=== PATIENT | male | born 1955 | race Caucasian/White ===

== ENCOUNTER 2017-10-30 17:02 | Emergency (ER) | payer OTHER ==
[~2017-10-30 17:02] MED LIST: GLUCTAB PO; GLYB2.5T3 PO; LISI-363 PO
[2017-10-30 17:18] VITALS: BP 157/77; PULSE 66; RESP 18; TEMP 97.7; O2SAT 100
--- NOTE | 2017-10-30 18:06 | RADRPT ---
EXAM DATE/TIME: 10/30/2017 17:38 [place] COMPARISON: No previous studies available for comparison. INDICATIONS : Right hand pain and inflammation. MEDICAL HISTORY : Hypertension. Diabetes mellitus type II. SURGICAL HISTORY : None. ENCOUNTER: Initial ACUITY: 3 days PAIN SCORE: 6/10 LOCATION: Right hand, MCPJ's FINDINGS: There is moderate osteoarthritis in the right hand. No acute fracture or dislocation. No bony destruc tive changes are present. CONCLUSION: Moderate osteoarthritis. Findings most notable at the metacarpophalangeal joints with associated soft tissue swelling. Jean Marie Armendariz MD on October 30, 2017 at 18:01 Board Certified Radiologist. This report was verified electronically.
[2017-10-30 19:22] LABS: BASOPHIL # 0.1 TH/MM3 (0-0.2); BASOPHIL % 1.2 % (0.0-2.0); EOSINOPHIL # 0.1 TH/MM3 (0-0.4); HEMOGLOBIN 14.7 GM/DL (13.0-17.0); LYMPH % 23.9 % (9.0-44.0); LYMPHOCYTE # 2.5 TH/MM3 (1.0-4.8); MEAN CELL VOLUME 91.8 FL (80.0-100.0); MEAN CORPUSCULAR HEMOGLOBIN 32.2 PG (27.0-34.0); MEAN PLATELET VOLUME 8.7 FL (7.0-11.0); MONO % 8.5 % (0.0-8.0); MONOCYTE # 0.9 TH/MM3 (0-0.9); NEUT % 65.4 % (16.0-70.0); PLATELET COUNT 391 TH/MM3 (150-450); RED BLOOD COUNT 4.58 MIL/MM3 (4.50-5.90); RED CELL DISTRIBUTION WIDTH 14.9 % (11.6-17.2); WHITE BLOOD COUNT 10.7 TH/MM3 (4.0-11.0)
[2017-10-30 19:34] LABS: BICARBONATE 26.3 MEQ/L (21.0-32.0); CALCIUM 9.9 MG/DL (8.5-10.1); CREATININE 1.21 MG/DL (0.60-1.30)
--- NOTE | 2017-10-30 20:31 | PD ---
HPI Chief Complaint: Injury Time Seen by Provider: 20:28 Travel History International Travel<30 days: No Contact w/Intl Traveler<30days: No Traveled to known affect area: No History of Present Illness HPI This is a 62-year-old male with history of hypertension and diabetes. He presents for evaluation of redness of the dorsum of the right hand. He first noticed it one week ago. He noticed 2 small bumps and thought that maybe he got bit by a bug although he does not recall any bug bites or puncture wounds. He was seen at the [facility] today and referred here for further evaluation of this issue. He reports pain, aching, and the dorsum of the right hand, worse with palpation. He denies any fevers, chills. He has no other complaints at this time. [facility] Past Medical History Diabetes: Yes Hypertension: Yes Social History Alcohol Use: Yes (occasionally) Tobacco Use: Yes Substance Use: No Allergies-Medications (Allergen,Severity, Reaction): Coded Allergies: No Known Allergies (Unverified , 08/22/15) Reported Meds & Prescriptions Reported Meds & Active Scripts Active Clindamycin (Clindamycin HCl) 300 Mg Cap 300 Mg PO TID 10 Days Reported Trazodone (Trazodone HCl) 100 Mg Tablet 100 Mg PO HS Tramadol (Tramadol HCl) 50 Mg Tab 50 Mg PO Q8H PRN Sildenafil 20 Mg Tab 50 Mg PO Prazosin (Prazosin HCl) 2 Mg Cap 4 Mg PO HS Pravastatin 40 Mg Tab 40 Mg PO HS Nicotine Patch (Nicotine) 21 Mg/24 Hr Patch 21 Mg T-DERMAL DAILY Metoprolol Tartrate 50 Mg Tab 50 Mg PO BID Methocarbamol 500 Mg Tab 500 Mg PO TID Metformin (Metformin HCl) 1,000 Mg Tab 1,000 Mg PO BIDPC Goodsense Muscle Rub Topical (Menthol-Methyl Salicylate Topical) 8-30 % Cream Magnesium Oxide 400 Mg Tab 400 Mg PO BID Lisinopril 40 Mg Tab 40 Mg PO BID Lidocaine Topical (Lidocaine HCl) 5 % Oint 1 Applic TOPICAL BID PRN Hydrochlorothiazide 50 Mg Tab 50 Mg PO DAILY Hydralazine (Hydralazine HCl) 100 Mg Tab 50 Mg PO TID Take with meals Glipizide 5 Mg Tab 7.5 Mg PO DAILY Take 30 minutes before a meal Gabapentin 800 Mg Tab 800 Mg PO TID [fish oil] 2,000 Mg PO DAILY Diclofenac Topical 1% Gel 1 Applic TOPICAL QID Vitamin D3 (Cholecalciferol) 2,000 Unit Cap 2,000 Units PO DAILY Capsaicin Topical (Capsaicin) 0.025% Cream 1 Applic TOPICAL BID Acetaminophen 325 Mg Capsule 650 Mg PO BID PRN Review of Systems General / Constitutional: No: Fever, Chills Musculoskeletal: Positive: Pain Skin: Positive Other (Positive for redness, pain) Physical Exam Narrative GENERAL: Well-developed well-nourished male in no acute distress SKIN: Warm and dry. There is an area of erythema on the dorsum of the right mid hand. There is no significant induration. There is no fluctuance. No open wounds.\ CARDIOVASCULAR: Regular rate and rhythm. No murmur appreciated. RESPIRATORY: No accessory muscle use. Clear to auscultation. Breath sounds equal bilaterally. Extremities: Skin as noted above Data Data Last Documented VS Vital Signs Date Time Temp Pulse Resp B/P (MAP) Pulse Ox O2 Delivery O2 Flow Rate FiO2 10/30/17 17:18 97.7 66 18 157/77 (103) 100 Orders Orders Hand, Complete ([id number]) (10/30/17 ) Complete Blood Count With Diff (10/30/17 17:20) Basic Metabolic Panel (Bmp) (10/30/17 17:20) Ed Discharge Order (10/30/17 21:02) Clindamycin Inj (Cleocin Inj) (10/30/17 21:15) Labs Laboratory Tests Test 10/30/17 18:39 White Blood Count 10.7 TH/MM3 Red Blood Count 4.58 MIL/MM3 Hemoglobin 14.7 GM/DL Hematocrit 42.0 % Mean Corpuscular Volume 91.8 FL Mean Corpuscular Hemoglobin 32.2 PG Mean Corpuscular Hemoglobin Concent 35.0 % Red Cell Distribution Width 14.9 % Platelet Count 391 TH/MM3 Mean Platelet Volume 8.7 FL Neutrophils (%) (Auto) 65.4 % Lymphocytes (%) (Auto) 23.9 % Monocytes (%) (Auto) 8.5 % Eosinophils (%) (Auto) 1.0 % Basophils (%) (Auto) 1.2 % Neutrophils # (Auto) 7.0 TH/MM3 Lymphocytes # (Auto) 2.5 TH/MM3 Monocytes # (Auto) 0.9 TH/MM3 Eosinophils # (Auto) 0.1 TH/MM3 Basophils # (Auto) 0.1 TH/MM3 CBC Comment DIFF FINAL Differential Comment Blood Urea Nitrogen 18 MG/DL Creatinine 1.21 MG/DL Random Glucose 142 MG/DL Calcium Level 9.9 MG/DL Sodium Level 134 MEQ/L Potassium Level 4.0 MEQ/L Chloride Level 97 MEQ/L Carbon Dioxide Level 26.3 MEQ/L Anion Gap 11 MEQ/L Estimat Glomerular Filtration Rate 61 ML/MIN [facility] Medical Decision Making Medical Screen Exam Complete: Yes Emergency Medical Condition: Yes Medical Record Reviewed: Yes Differential Diagnosis Right hand cellulitis, abscess, osteomyelitis, tenosynovitis Narrative Course Examination is consistent with cellulitis of the dorsum of the right hand with no evidence of abscess formation or septic joint or tenosynovitis. He had lab work in triage which revealed no significant abnormalities. The plan is to treat him as an outpatient with clindamycin. Recommended recheck in 2-3 days with his primary care physician and return for any new or worsening symptoms. He is agreeable to this plan. Diagnosis Primary Impression: Cellulitis of right hand Additional Instructions: Medication as prescribed. Warm compresses several times a day 15 minutes at a time. Elevate. Follow-up with primary care physician in 2 days for recheck. Return for any acutely new or worsening symptoms. Med/Other Pt SpecificInfo: Prescription(s) given Scripts Clindamycin (Clindamycin) 300 Mg Cap 300 MG PO TID for Infection for 10 Days, CAP 0 Refills Prov: Rolando Jaeger MD 10/30/17 Disposition: 01 DISCHARGE HOME Condition: Stable Fady Ortiz Oct 30, 2017 20:31
[2017-10-30] MEDS ORDERED: CAPS0.022 TOPICAL (20:46)
[2017-10-30] MEDS ORDERED: MAGN400T2 PO (20:46)
[2017-10-30] MEDS ORDERED: METF1000 PO (20:46)
[2017-10-30] MEDS ORDERED: PRAZ2CAP PO (20:46)
[2017-10-30] MEDS ORDERED: SILD20TA11 PO (20:46)
[2017-10-30] MEDS ORDERED: METO50TA PO (20:46)
[2017-10-30] MEDS ORDERED: METH500T3 PO (20:46)
[2017-10-30] MEDS ORDERED: fish oil PO (20:46)
[2017-10-30] MEDS ORDERED: DICL1GEL7 TOPICAL (20:46)
[2017-10-30] MEDS ORDERED: MENT1CRE (20:46)
[2017-10-30] MEDS ORDERED: LISI40TA PO (20:46)
[2017-10-30] MEDS ORDERED: VITA2000 PO (20:46)
[2017-10-30] MEDS ORDERED: HYDR-3801 PO (20:46)
[2017-10-30] MEDS ORDERED: GLIP5TAB8 PO (20:46)
[2017-10-30] MEDS ORDERED: HYDR50TA3 PO (20:46)
[2017-10-30] MEDS ORDERED: TRAZ100T10 PO (20:46)
[2017-10-30] MEDS ORDERED: NICO21DI2 T-DERMAL (20:46)
[2017-10-30] MEDS ORDERED: GABA800T PO (20:46)
[2017-10-30] MEDS ORDERED: TRAM50TA PO (20:46)
[2017-10-30] MEDS ORDERED: LIDO5%T TOPICAL (20:46)
[2017-10-30] MEDS ORDERED: PRAV40TA2 PO (20:46)
[2017-10-30] MEDS ORDERED: ACET325C PO (20:46)
[2017-10-30] MEDS ORDERED: CLIN300C5 PO (21:02)
[2017-10-30] MEDS ORDERED: CLINDAMYCIN PHOS 600 MG/4 ML VIAL IM ONE (21:15)
[2017-10-31] MEDS ORDERED: OMEG100046 PO (10:53)
== END 2017-10-30 21:33 | disposition home or self-care (01) ==
LOC: NED 17:02 → NEPD 21:33
DX: L03.113 Cellulitis of right upper limb (principal); I10 Essential (primary) hypertension; E11.9 Type 2 diabetes mellitus without complications; Z72.0 Tobacco use
CPT/HCPCS: 73130; 80048; 85025; 96372